=== PATIENT | female | born 1955 | race African-American/Black ===

== ENCOUNTER 2018-11-17 10:16 | Inpatient (IN) ==
[2018-11-17 11:32] LABS: BASO# 0.03 X1000 (0.0-0.2); BASO% 0.3 % (0.0-0.8); EOS# 0.07 X1000 (0.0-0.7); EOS% 0.7 % (0.0-10.0); HEMATOCRIT 34.9 % (37.0-47.0); HEMOGLOBIN 11.5 g/dL (12.0-16.0); IMM GRAN# 0.04 X1000 (0.0-0.04); IMM GRAN% 0.4 % (0.0-0.5); LYMPH% 12.7 % (20.5-51.1); MCH 31.1 PG (27-31); MCV 94.3 FL (81-99); MONO# 0.59 X1000 (0.11-0.59); MONO% 5.8 % (1.7-9.3); NEUT# 8.22 X1000 (1.4-6.5); NEUT% 80.1 % (42.2-75.2); PLT 201 X1000 (130-400); RDW 12.1 % (11.5-14.5); WBC 10.25 X1000 (4.8-10.8)
[2018-11-17 11:35] LABS: BILIRUBIN URINE NEGATIVE (NEGATIVE); BLOOD URINE NEGATIVE (NEGATIVE); CLARITY CLEAR (CLEAR); COLOR YELLOW; KETONE URINE NEGATIVE (NEGATIVE); LEUKOCYTES URINE NEGATIVE (NEGATIVE); NITRITE URINE NEGATIVE (NEGATIVE); PH URINE 6.5; SP GRAVITY URINE 1.015; UROBILINOGEN URINE NORMAL
[2018-11-17 11:39] LABS: URINE BACTERIA 1+ /HFP; URINE CAST GRANULAR PRESENT /LPF; URINE EPITHELIAL CELLS >10 /HPF (<10); URINE SOURCE CLEAN CATCH
--- NOTE | 2018-11-17 12:00 | Extremity Venous Study ---
EXAM: Venous U/S Bilateral Legs HISTORY: leg pain TECHNIQUE: Al scale, color Doppler, and duplex evaluation was performed. COMPARISON: None. FINDINGS: The deep veins of the bilateral lower extremities demonstrate appropriate compressibility and augmentation. No intraluminal thrombus is visualized. There is no evidence for DVT. The superficial veins appear patent. Visualization is somewhat limited by large body habitus . IMPRESSION: No evidence for deep venous thrombosis bilateral lower extremities. Electronically signed by Radha David 11/17/2018 11:58 AM
[2018-11-17 12:09] LABS: ALBUMIN 2.9 g/dL (3.5-5.0); CALCIUM 7.8 mg/dL (8.8-10.2); CREATININE 3.8 mg/dL (0.5-0.9); TOTAL BILIRUBIN 0.3 mg/dL (0.20-1.00); TOTAL PROTEIN 6.4 g/dL (6.3-8.3)
[2018-11-17 12:31] LABS: CK INDEX 0.7 (0.0-2.5); CK-MB 3.79 ng/mL (0.0-5.0)
[2018-11-17 12:40] LABS: INFLUENZA A NEGATIVE (NEGATIVE); INFLUENZA B NEGATIVE (NEGATIVE)
[2018-11-17] MEDS ORDERED: KLOR-CON PO ONE (12:48)
--- NOTE | 2018-11-17 13:04 | Diag Imaging Result Doc PS360 ---
EXAM: CHEST-2 VIEWS HISTORY: postive d-dimer, sob TECHNIQUE: PA and Lateral chest x-ray COMPARISON: None. FINDINGS: There is cardiomegaly. Pulmonary vasculature is not congested. No infiltrate, effusion, or pneumothorax is appreciated. IMPRESSION: Cardiomegaly. Electronically signed by Radha David 11/17/2018 1:01 PM
--- NOTE | 2018-11-17 13:11 | PROVIDER DOCUMENTATION ---
This chart was entered by Kimberly Batista Scribe, acting as scribe for Annie Garcia CRNP. HPI-General Adult - General Chief Complaint: Extremity Pain Stated Complaint: BACK / ABDOMINAL PAIN Time Seen by Provider: 11/17/18 11:02 Source: patient Allergies/Adverse Reactions: Patient Allergies Allergy/AdvReac Type Severity Reaction Status Date / Time egg Allergy ANAPHYLAXIS Verified 10/24/14 07:38 Home Medications: Home Medication List Medication Instructions Recorded Confirmed Last Taken Type Amlodipine [Norvasc] 10 mg PO DAILY 03/03/14 12/30/14 12/20/14 11:00 History Furosemide [Lasix] 40 mg PO DAILY 03/03/14 12/30/14 12/29/14 11:00 History Hydralazine [Apresoline] 50 mg PO TID 03/03/14 12/30/14 12/29/14 11:00 History Insulin Humulin 70/30 [Humulin 40 unit SUBQ HS 03/03/14 12/30/14 10/17/14 History 70/30] Insulin Humulin 70/30 [Humulin 80 unit SUBQ ACB 03/03/14 12/30/14 10/17/14 History 70/30] Levothyroxine [Synthroid] 150 microgm PO DAILY #60 tablet 10/24/14 12/30/1412/01 11:00 Rx Losartan [Cozaar] 100 mg PO DAILY #60 tablet 10/24/14 12/30/14 12/20/14 11:00 Rx Metformin [Glucophage] 1,000 mg PO BID CC #120 tablet 10/24/14 12/30/14 11:00 Rx Potassium Chloride E.r. [Klor-Con] 20 meq PO DAILY 10/24/14 12/30/14 12/29/14 11 :00 History Ranitidine HCl 300 mg PO BID 10/24/14 12/30/14 12/29/14 11:00 History Amlodipine [Norvasc] 10 mg PO DAILY #30 tablet 12/30/14 Unknown Rx Furosemide [Lasix] 40 mg PO DAILY #30 tablet 12/30/14 Unknown Rx Hydralazine [Apresoline] 50 mg PO TID #120 tablet 12/30/14 Unknown Rx Levothyroxine [Synthroid] 150 microgm PO DAILY #30 tablet 12/30/14 Unknown Rx Losartan [Cozaar] 50 mg PO BID #60 tablet 12/30/14 Unknown Rx Metformin [Glucophage] 1,000 mg PO BID CC #60 tablet 12/30/14 Unknown Rx Potassium Chloride [K-Tab ER] 20 meq PO DAILY #30 tablet.er 12/30/14 Unknown Rx - History of Present Illness -Gen Adult Nature of Presenting Problems: 62yof present to ER with c/o multiple complaints. Pt c/o right leg pain onset Tuesday. c/o bilateral chronic knee pain. Pt also c/o left sided abd pain and lower back pain onset Tuesday. Pt denies hx of CHF but states she "takes lasix for her blood pressure". Location of Pain/Injury: reports: abdomen (left side), back (lower), lower extremity (right upper leg and bilateral knees) Pain Radiation: reports: no radiation Quality of Pain: reports: aching Severity: reports: mild Onset/Duration: reports: 2 days ago Timing: reports: still present, getting worse Context/Activities at Onset: reports: light activity Modifying Factors: improves with: nothing Associated Symptoms: reports: denies symptoms Similar Symptoms Previously?: Yes Recently seen or treated by another doctor?: No Review of Systems - Adult - REVIEW OF SYSTEMS - ADULT Constitutional: reports: no symptoms reported Eyes: reports: no symptoms reported Ears, Nose, Mouth & Throat: reports: no symptoms reported Cardiovascular: reports: no symptoms reported Respiratory: reports: see HPI, dyspnea on exertion, shortness of breath. denies : cough, excessive sputum production, wheezing Gastrointestinal: reports: abdominal pain (left side). denies: diarrhea, nausea , vomiting Genitourinary: reports: no symptoms reported Musculoskeletal: reports: back pain (lower), other (right upper leg and bilateral knee pain). denies: neck pain Integumentary: reports: no symptoms reported Neurological: reports: no symptoms reported Psychiatric: reports: no symptoms reported Endocrine: reports: no symptoms reported Hematologic/Lymphatic: reports: no symptoms reported Allergic/Immunologic: reports: no symptoms reported All Other Systems: Reviewed and Negative Past History - Adult - PAST MEDICAL HISTORY-ADULT Review of Records: reports: Nursing Assessment Review, Medications Reviewed, Social history reviewed & non-contributory. Major Childhood Illnesses: reports: denies history Cardiovascular: reports: HTN Respiratory: reports: denies history Gastrointestinal: reports: GERD Obstetrical/Gynecological: reports: denies history Genitourinary: reports: denies history Musculoskeletal: reports: denies history Neurological: reports: CVA, TIA Endocrine/Immune: reports: Diabetes, thyroid disorder Other Conditions: reports: denies history - PRIOR SURGERIES/PROCEDURES Surgical/Procedure History: reports: tonsillectomy, other (thyroid) - IMMUNIZATION STATUS Childhood Immunizations: See Nurse Assessment Flu Vaccine: See Nurse Assessment - FAMILY HISTORY Family History: reviewed, not pertinent - SOCIAL HISTORY Smoking: cigarettes (former) Substance Use: denies Physical Exam-General - PHYSICAL EXAM-ADULT Initial Vital Signs Reviewed: Yes - CONSTITUTIONAL General Appearance: alert, no apparent distress - HEAD, EARS, NOSE, MOUTH & THROAT HENMT: moist mucous membranes, normal ENT inspection - NECK Neck: full range of motion, supple, normal inspection - RESPIRATORY Respiratory: chest non-tender, normal breath sounds, decreased breath sounds - CARDIOVASCULAR Cardiovascular: normal peripheral pulses, regular rate, rhythm - GASTROINTESTINAL (ABDOMEN) Abdominal Exam: normal bowel sounds, soft, tenderness (LLQ). negative: distended, guarding, rigid, rebound - LYMPHATIC Lymphatic: no adenopathy - MUSCULOSKELETAL Back Exam: normal inspection, no vertebral tenderness, CVA tenderness (left), other (paraspinal muscle tenderness to left lumbar) Extremity: normal range of motion, normal capillary refill, pedal edema (2+ BLE) , tenderness (posterior right upper leg, right knee). negative: deformity, erythema - SKIN Integumentary: normal color, normal turgor, warm/dry - NEUROLOGIC Neurologic: grossly normal - PSYCHIATRIC Psych/Mental Status: normal mood/affect, oriented x 3 Progress - PLAN OF CARE/RESULTS Progress/Plan/Lab Results: Vital Signs - 8 hr 11/17/18 10:22 Temperature 97.9 F Pulse Rate 70 Respiratory Rate 18 Blood Pressure 188/74 O2 Sat by Pulse Oximetry 95 Orders Category Date Time Status CBC WITH DIFF [HEME] Stat Lab 11/17/18 11:11 Ordered COMPREHENSIVE METABOLIC PANEL [CHEM] Stat Lab 11/17/18 11:11 Uncollected LIPASE [CHEM] Stat Lab 11/17/18 11:12 Uncollected PRO B-NATRIURETIC PEPTIDE Stat Lab 11/17/18 11:[address] W/POSS RFLX CULT [URINALYSIS] Stat Lab 11/17/18 11:11 Uncollected US [Venous U/S Bilateral Legs] Stat Ther 11/17/18 11:11 Ordered Result Diagrams: 11/17/18 11:21 11/17/18 11:21 - REASSESSMENT Reassessment #1 Time Reassessed: 12:54 (Pt resting. Updated pt of results and possible admission. Pt agrees with this plan. Will page hospitalist.) - EKG 1 Time of EKG reading by physician:: 12:41 EKG Read and Signed by:: Scott Rios EKG Interpretation (*Must complete 3 of following elements*): Abnormal Rate: 59 Rhythm: sinus shelly Comments: moderate voltage criteria for LVH, may be normal variant - XRAY 1 XRAY Study: Chest Impression: See EMR Report (There is cardiomegaly. Pulmonary vasculature is not congested. No infiltrate, effusion, or pneumothorax is appreciated. IMPRESSION: Cardiomegaly. Electronically signed by Radha David 11/17/2018 1: 01 PM) - ULTRASOUND (By Radiology) 1 US Study: Lower Ext (bilateral venous) Impression: Normal (US tech states no DVT present bilaterally. (1150)), See EMR Report ( EXAM: Venous U/S Bilateral Legs HISTORY: leg pain TECHNIQUE: Al scale, color Doppler, and duplex evaluation was performed. COMPARISON: None. FINDINGS: The deep veins of the bilateral lower extremities demonstrate appropriate compressibility and augmentation. No intraluminal thrombus is visualized. There is no evidence for DVT. The superficial veins appear patent. Visualization is somewhat limited by large body habitus . IMPRESSION: No evidence for deep venous thrombosis bilateral lower extremities. Electronically signed by Radha David 11/17/2018 11:58 AM 11/17/18 1158 10/07 1200 Dictated by: Radha David MD Dictated: 11/17/18 1157 Transcribed by: - 11/17/18 1157 CC:) - CONSULTS/PCP/HOSPITALIST Notification #1 *Consult/PCP/Hospitalist*: Dr Zapata, hospitalist Time Discussed: 12:55 (possible admission. Requests order for echo and VQ scan) Consult Disposition: Admit Departure - Departure Date of Disposition Decision: 11/17/18 Time of Disposition Decision: 12:55 DIAGNOSIS: Acute renal insufficiency, Hypokalemia, Positive D dimer Disposition: ADMITTED INPATIENT 09 Certified Medical Emergency: Emergent Condition: Fair Referrals and Follow-Ups: Silvina Lawton CRNP [Primary Care Provider] - - Critical Care Note This patient required my direct & personal management of CC.: No Attestation - Physician/ LOYDA Attestation Patient care was provided by Advanced Practice Provider:: Yes Advanced Practice Provider:: Annie Garcia Advanced Practice Provider documentation review:: The Mid-level provider documentation, treatment plan and medical decision making was reviewed by the physician who agrees with all treatment and medical decision making by the MLP. The physician spent face to face time with patient:: No Advanced Practice Provider documentation review:: Supervising physician onsite and consulted in the evaluation and care of this patient. The physician did not have a face to face encounter with the patient. This chart was documented by the indicated scribe, (Kimberly Batista Scribe) and accurately reflects the services I performed and decisions made by me, Annie Garcia CRNP, as attested by the provider's signature.
[2018-11-17 15:54] LABS: CK INDEX 0.8 (0.0-2.5); CK-MB 4.93 ng/mL (0.0-5.0)
[2018-11-17] MEDS: HUMALOG (PARKWAY) SUBQ SCH ×2 (16:43→22:00)
[2018-11-17] MEDS: LASIX IV SCH (16:47)
--- NOTE | 2018-11-17 17:00 | Diag Imaging Result Doc PS360 ---
EXAM: LUNG SCAN / VQ HISTORY: elevated d-dimer, sob TECHNIQUE: 41.1 mCi technetium 99m DTPA inhaled. 6 mCi technetium 99m MAA IV. COMPARISON: None. FINDINGS: There are no perfusion abnormalities to suggest acute pulmonary embolism. No ventilation/perfusion mismatches. IMPRESSION: Normal study. No evidence for acute pulmonary embolism. Electronically signed by Radha David 11/17/2018 4:57 PM
[2018-11-17] MEDS ORDERED: TYLENOL PO PRN (18:04)
[2018-11-17] MEDS ORDERED: ZOFRAN IV PRN (18:04)
[2018-11-17 18:34] LABS: CK INDEX 0.8 (0.0-2.5); CK-MB 4.86 ng/mL (0.0-5.0)
--- NOTE | 2018-11-17 20:54 | ECHO REPORT ---
ORDER DATE: 11/17/2018 INDICATION: Shortness of breath, edema, elevated D-dimer, kidney failure. FINDINGS: 1. The right atrium appears normal in size at 3.3 cm. 2. Mild tricuspid regurgitation. RV systolic pressure of 45. 3. Normal RV size and systolic function. 4. Trace pulmonic insufficiency. 5. Mild left atrial enlargement with a dimension of 4.6 cm. 6. No mitral valve prolapse. Trace mitral regurgitation. 7. Normal LV size with an end-diastolic dimension of 4 cm. Mild left ventricular hypertrophy with a posterior and interventricular septal wall thickness 1.3 cm each. Normal LV systolic function. Calculated ejection fraction of 67% with normal wall motion. 8. Aortic valve opens well. No evidence of stenosis or insufficiency. 9. Aorta appears normal in visualized segments. 10. No pericardial effusion seen. cc: Ravindra Cormier MD
[2018-11-17 21:27] LABS: UR CREAT RANDOM 123.4 mg/dL (11-20); UR PROT RANDOM > 600.0 mg/dL; UR SODIUM 31 mmoll; UR UREA NITROGEN RANDOM 293 mg/dL
[2018-11-17 21:42] LABS: CK INDEX 0.7 (0.0-2.5); CK-MB 4.98 ng/mL (0.0-5.0)
--- NOTE | 2018-11-17 22:20 | HISTORY AND PHYSICAL ---
HISTORY OF PRESENT ILLNESS: The patient came in for evaluation because of shortness of breath and several other complaints, she has also had bilateral lower extremity swelling, which is worse on the right side than the left. She reports a history of chronic renal failure. She had an elevated D-dimer. Her creatinine is up to 3.8, but unclear. Chest x-ray showed cardiomegaly but no pulmonary edema. Venous ultrasound was negative for PE and her V/Q was negative. PROBLEM LIST: Volume overload, presumably. We will continue diuretics and monitor her kidney function. We will also rule out congestive heart failure, hyperthyroid, other things if possible. I have discussed the case with talent acquisition relationship manager, may try to get Dr. Fitzgerald to evaluate the patient as well because the difficulty here is that she appears volume overloaded but she may also be in chronic renal failure. Disposition pending clinical status. She also reports some chest discomfort, just kind of multiple complaints. Her most recent creatinine is 2.3 from February. I do not have any other data, at this point, but she reports she has had an outpatient ultrasound and all that has been negative. Her latest creatinine is 1.3. She had a myocardial perfusion scan in 2014, but that was pretty normal. Ejection fraction at that time was normal. cc: Seven Zapata MD
[2018-11-18] MEDS: LASIX IV SCH ×3 (06:00→23:54)
[2018-11-18] MEDS: HUMALOG (PARKWAY) SUBQ SCH ×4 (06:22→20:43)
[2018-11-18 07:12] LABS: BASO# 0.04 X1000 (0.0-0.2); BASO% 0.6 % (0.0-0.8); EOS# 0.15 X1000 (0.0-0.7); EOS% 2.2 % (0.0-10.0); HEMATOCRIT 33.2 % (37.0-47.0); HEMOGLOBIN 10.9 g/dL (12.0-16.0); IMM GRAN# 0.01 X1000 (0.0-0.04); IMM GRAN% 0.1 % (0.0-0.5); LYMPH# 1.94 X1000 (1.2-3.4); LYMPH% 28.4 % (20.5-51.1); MCH 31.2 PG (27-31); MCHC 32.8 g/dL (33-37); MCV 95.1 FL (81-99); MONO# 0.69 X1000 (0.11-0.59); MONO% 10.1 % (1.7-9.3); MPV 11.9 FL (7.4-10.4); NEUT# 4.01 X1000 (1.4-6.5); NEUT% 58.6 % (42.2-75.2); PLT 191 X1000 (130-400); RBC 3.49 XMIL (4.2-5.4); RDW 12.1 % (11.5-14.5); WBC 6.84 X1000 (4.8-10.8)
[2018-11-18 07:37] LABS: HEMOGLOBIN A1C 6.7 % (4.8-6.0)
[2018-11-18 07:38] LABS: CREATININE 3.7 mg/dL (0.5-0.9); POTASSIUM 2.7 mmol/L (3.5-5.1)
--- NOTE | 2018-11-18 09:30 | Diag Imaging Result Doc PS360 ---
EXAM: US RENAL 2 (RETROPER) COMPLETE INDICATION: samir TECHNIQUE: COMPARISON: None. FINDINGS: There is a 2.7 cm simple cyst associated with the right kidney. The renal echotexture may be marginally increased, which is a nonspecific indicator of medical renal disease. No solid renal mass or hydronephrosis is identified. The right kidney measures 12.4 cm and the left kidney measures 12.1 cm in the greatest longitudinal axes. Right renal cortex measures 0.9 cm and the left renal cortex measures 1.3 cm in thickness. The urinary bladder is only slightly distended and is grossly unremarkable, otherwise. IMPRESSION: Suggestion of very minimal increased renal cortical echotexture, which is a nonspecific indicator of medical renal disease. Electronically signed by Tacho Landaverde 11/18/2018 9:28 AM
[2018-11-18] MEDS ORDERED: NORVASC PO ONE (12:24)
[2018-11-18] MEDS ORDERED: BYSTOLIC PO ONE (12:24)
--- NOTE | 2018-11-18 15:46 | NEPHROLOGY CONSULTATION ---
DATE: 11/17/2018 REASON FOR CONSULTATION: Edema and chronic kidney disease. HISTORY OF PRESENT ILLNESS: Ms. Quevedo is a 62-year-old woman with known chronic kidney disease secondary to diabetes. She has known retinopathy. She came to the hospital because of worsening shortness of breath that made her feel like she was dying. She also was experiencing worsening lower extremity edema. Her dyspnea was with exertion, but she had no PND or orthopnea. No chest pain or palpitations. Her appetite is intact. No nausea, vomiting or diarrhea. She has been in the hospital for less than 24 hours and she is net negative 1 liter. She has seen Dr. Armendariz in the past, as well as Dr. Umana in the past. Her last encounter with Nephrology was in April, at which time her creatinine was in the mid 2s, and she was told that she had diabetic nephropathy. She was receiving losartan and also amlodipine. PAST MEDICAL HISTORY: As above. She also has GERD, hypertension, hyperlipidemia. HOME MEDICATIONS: Amlodipine, furosemide, hydralazine, insulin, levothyroxine, losartan, metformin, potassium, ranitidine. ALLERGIES: Egg. SOCIAL: . No tobacco or alcohol. FAMILY HISTORY: Positive for chronic kidney disease, but no ESKD. REVIEW OF SYSTEMS: Negative otherwise. PHYSICAL EXAMINATION: Vital Signs: Blood pressure 202/75, heart rate 55, respirations 16, afebrile. General: She is an obese, woman in no acute distress. Skin: Warm and dry with some scaling, but no other lesions. HEENT: Pupils are equal. Conjunctivae are pink. Oropharynx is clear. Normal tongue. Normal teeth. Neck: Supple. Trachea is midline. Neck veins are not appreciated. No hepatojugular reflux. Heart: PMI is nondisplaced. Regular rate and rhythm without gallops or murmurs. Lungs: Have equal breath sounds. No crackles or wheezes. Abdomen: Obese and soft. Bowel sounds present. No organomegaly or masses or bruits. Extremities: Have 2+ edema, right greater than left. IMPRESSION: 1. Chronic kidney disease stage IV secondary to diabetic nephropathy. Her 24-hour urine is in process to quantify her proteinuria. We will also quantify her renal function. She has undergone renal ultrasound today which demonstrated bilateral kidneys at 12+ cm. 2. Volume overload. Her blood pressure is elevated, which may lead to diastolic dysfunction and worsened fluid retention. Her amlodipine may contribute as well. We will titrate her beta- melva, and I increased her furosemide to 80 mg twice daily. We will continue to observe. If her blood pressure improves, then we will attempt to wean off of amlodipine and replace it with a different medication. I will go ahead and restart her losartan 100 mg a day. cc: Zhang Fitzgerald MD
[2018-11-18] MEDS: HUMULIN 70/30 (PARKWAY) SUBQ SCH (17:57)
[2018-11-18] MEDS: APRESOLINE PO SCH (20:43)
[2018-11-18] MEDS: COREG PO SCH (20:43)
[2018-11-18] MEDS: XALATAN 0.005% OPH SOLN BOTH EYES SCH (20:43)
[2018-11-18] MEDS ORDERED: APRESOLINE PO SCH ×2 (21:00)
--- NOTE | 2018-11-18 21:30 | PROGRESS NOTE ---
DATE: 11/18/2018 SUBJECTIVE: The patient has no major complaints. She actually looks a lot better. Subjectively, looks a little better. Her lungs are clear though. OBJECTIVE: Vital Signs: Blood pressure is 194/72, heart rate of 57, respiratory rate 18, temperature 98.1 degrees. Cardiovascular: Regular rate and rhythm. Pulmonary: Bilateral breath sounds. Clear to auscultation. GI: Soft, nontender, nondistended. Bowel sounds were positive. She still has about 2+ pitting edema. LABORATORY STUDIES: White count is 6. Hemoglobin and hematocrit of 10 and 33. Platelets 191,000. Potassium is 2.7, creatinine is 3.7. Sugar of 226. Her A1c though is only 6.7. PROBLEM LIST: 1. I would say malignant hypertension. We are working on control. Dr. Fitzgerald has switched her Coreg, increased her Lasix. I am going to stop her amlodipine and bump up her hydralazine, and we will see how she does. He has also replaced her losartan, and will see how things look. 2. Disposition. Pending her clinical status. In any case, the patient is stable. We will continue to follow closely. Disposition pending clinical status. We will continue to monitor her kidney function very closely. A 24-hour urine is in process. 3. Diabetes. Appears to be not completely under control, but I do not think she has been on her regular medications. I am not clear she is supposed to be on metformin, but she is not on metformin, or she cannot be with her renal dysfunction. We will follow. DISPOSITION: Pending her clinical status. cc: Seven Zapata MD
[2018-11-19] MEDS: HUMALOG (PARKWAY) SUBQ SCH ×4 (06:02→21:32)
[2018-11-19] MEDS: SYNTHROID PO SCH (06:02)
[2018-11-19 06:15] LABS: ALBUMIN 2.7 g/dL (3.5-5.0); CALCIUM 7.6 mg/dL (8.8-10.2); CREATININE 3.7 mg/dL (0.5-0.9); PHOSPHORUS 3.9 mg/dL (2.7-4.5); POTASSIUM 2.7 mmol/L (3.5-5.1)
[2018-11-19] MEDS: COZAAR PO SCH (08:58)
[2018-11-19] MEDS: COREG PO SCH ×2 (08:59→20:58)
[2018-11-19] MEDS: APRESOLINE PO SCH ×3 (08:59→20:57)
[2018-11-19] MEDS ORDERED: BYSTOLIC PO SCH (09:00)
[2018-11-19] MEDS: HUMULIN 70/30 (PARKWAY) SUBQ SCH ×2 (09:00→18:17)
[2018-11-19] MEDS ORDERED: NORVASC PO SCH (09:00)
[2018-11-19] MEDS ORDERED: KLOR-CON PO ONE (12:03)
[2018-11-19] MEDS: LASIX IV SCH (13:34)
--- NOTE | 2018-11-19 18:41 | PROGRESS NOTE ---
DATE: 11/19/2018 SUBJECTIVE: Patient has no focal complaints. OBJECTIVE: Blood pressure 177/65, heart rate of 59, respiratory rate 18, temperature 97.8 degrees, 97% on room air. The patient was feeling well but then she did not feel well later this afternoon and was very concerned about Apresoline even know that is also hydralazine which is a medicine she has taken before, although not at this dose. We had a long conversation about that. PROBLEM LIST: 1. Malignant hypertension is finally improved but she is symptomatic. We discussed that it was normal for her to be symptomatic. Her blood pressures probably been in the 190s or 200s and now in the 140s. She would be symptomatic its natural course and it may take a week or 2 to improve so that is not unusual. That being said she understood but she was still reluctant to continue hydralazine at this dose. As we want to encourage compliance I agree we would tone it down to b.i.d. and see how she does. 2. Volume overload. That seems to be better. I think I am going to try to decrease her Lasix. She has not really had a lot of output but at least switch her to p.o. Lasix we just started. I am going to leave her on her Lasix right now and. 3. Disposition I think she probably go home tomorrow if her blood pressure is stable and then her 24 hour urine collections will be up. She will need close followup with her PCP which is Silvina Lawton and she will follow up with Dr. Fitzgerald. I hope she will be compliant. We took her off her amlodipine due to swelling, Coreg was actually started by Dr. Fitzgerald as well as losartan, the hydralazine I bumped up will decrease but I think if she is stable tomorrow she should be able to go home. cc: Seven Zpaata MD
[2018-11-19] MEDS: XALATAN 0.005% OPH SOLN BOTH EYES SCH (20:58)
[2018-11-19 23:06] LABS: UR CREATININE 92.7 mg/dL (11-20); UR CREATININE TOTAL 1297.8 mg/24 (600-1600)
[2018-11-19 23:08] LABS: CREATININE 3.7 mg/dL (0.7-1.2)
[2018-11-20] MEDS: LASIX IV SCH (00:13)
[2018-11-20] MEDS: HUMALOG (PARKWAY) SUBQ SCH ×2 (06:09→11:46)
[2018-11-20] MEDS: SYNTHROID PO SCH (06:45)
[2018-11-20 07:29] LABS: ALBUMIN 2.8 g/dL (3.5-5.0); CALCIUM 7.7 mg/dL (8.8-10.2); CREATININE 4.1 mg/dL (0.5-0.9); PHOSPHORUS 4.5 mg/dL (2.7-4.5); POTASSIUM 3.1 mmol/L (3.5-5.1)
[2018-11-20 07:39] VITALS: BP 200/74
[2018-11-20] MEDS ORDERED: KLOR-CON PO ONE (07:46)
[2018-11-20] MEDS: APRESOLINE PO SCH (08:27)
[2018-11-20] MEDS: COZAAR PO SCH (08:28)
[2018-11-20] MEDS: COREG PO SCH (08:28)
[2018-11-20] MEDS ORDERED: BYSTOLIC PO SCH (09:00)
[2018-11-20] MEDS ORDERED: LASIX PO SCH (09:00)
--- NOTE | 2018-11-20 09:08 | NEPHROLOGY PROGRESS NOTE ---
DATE: 11/20/2018 SUBJECTIVE: She is sitting up. Feels well. No shortness of breath, nausea, or vomiting. She is eating without difficulty. OBJECTIVE: Vital Signs: Blood pressure 163/68, heart rate 57, respirations 20, afebrile. General: No acute distress. Skin: Warm and dry. Neck: Neck veins are not distended. Heart: Regular. Lungs: Equal. Abdomen: Soft. Extremities: Have 1+ edema. No clubbing or cyanosis. IMPRESSION: Chronic kidney disease stage 4. Measured creatinine clearance 24 mL per minute. Her creatinine hetal today in the context of aggressive diuretic therapy so I will stop her intravenous Lasix and put her on 40 mg once daily. Okay for her to be discharged on this dose and we will see her in the office. cc: Zhang Fitzgerald MD
--- NOTE | 2018-11-20 10:02 | HISTORY AND PHYSICAL ---
PRIMARY CARE PROVIDER: EUGENIA Mauro. CHIEF COMPLAINT: Shortness of breath, bilateral lower extremity edema. HISTORY OF PRESENTING ILLNESS: This is a 62-year-old female who presents to [facility] ER with complaints of shortness of breath with exertion and bilateral lower extremity edema states that she takes her Lasix for her blood pressure and that she does not have a previous history of congestive heart failure. She is noted to have 2+ pitting edema to her bilateral lower extremities. Her workup showed a D-dimer of 1.83, potassium of 3, BUN of 27 with a creatinine of 3.8. States that she has had some chronic kidney disease in the past but does not know her stage. Her proBNP today was 1625 with no previous to compare to. We did do a bilateral lower extremity venous Doppler in the emergency room that showed no evidence of a DVT to bilateral lower extremities. Her chest x-ray showed cardiomegaly but the pulmonary vascular was not congested. No infiltrate, effusion or pneumothorax was appreciated so she is being admitted for further evaluation and treatment. PAST MEDICAL HISTORY: Hypertension, GERD, CVA, diabetes and hypothyroidism. PAST SURGICAL HISTORY: Tonsillectomy and thyroidectomy. FAMILY HISTORY: Reviewed and noncontributory. SOCIAL HISTORY: She currently lives with family, is a former smoker. Denies any alcohol or illicit drug use. ALLERGIES: Eggs. HOME MEDICATIONS: Will need to obtain a current list and reconcile and then review and restart as appropriate. I will place an order for nursing to update and confirm home medications. LABORATORY DATA: Showed a white blood cell count of 10.25, hemoglobin 11.5, hematocrit 34.9, platelets 201,000. D-dimer of 1.83, sodium 138, potassium was 3, chloride 99, CO2 27, BUN of 27, creatinine 3.8, glucose 231, creatine kinase of 552, CK-MB of 3.79, troponin 0.060. ProBNP of 1625, lipase was 66. Urinalysis was negative except for 1+ bacteria. Influenza A and B were both negative. Bilateral lower extremity venous Doppler showed no evidence of a DVT to bilateral lower extremities. Chest x-ray showed cardiomegaly. The pulmonary vasculature was not congested. No infiltrate, effusion or pneumothorax was appreciated. REVIEW OF SYSTEMS: She denied any fever, chills, blurred vision, dizziness, she denied any chest pain, coughing. She has had shortness of breath worse with exertion, denied any abdominal pain, constipation, diarrhea, burning or hurting with urination. She was positive for swelling to her bilateral lower extremities. PHYSICAL EXAMINATION: On arrival she had a temperature of 97.9 degrees, a pulse of 70, respirations 18, blood pressure 188/74, saturating 95% on room air. GENERAL: This is a 62-year-old female who is lying in the bed and answers questions appropriately. HEENT: Normocephalic, atraumatic. Normal ENT inspection. Oropharynx and nares were clear. NECK: Normal inspection, normal range of motion. LUNGS: With decreased breath sounds to her bases bilaterally but equal lung expansion and chest wall movement noted. HEART: With regular rate and rhythm. No murmurs, rubs, or gallops. She was noted to have 2+ pitting edema to bilateral lower extremities. ABDOMEN: Soft, nontender, nondistended. Bowel sounds are present x4 quadrants. MUSCULOSKELETAL: She has 5/5 strength x4 extremities. NEUROLOGICAL: The cranial nerves 2-12 appear grossly intact. ASSESSMENT: 1. A new onset congestive heart failure. 2. Hypokalemia. 3. Acute on chronic kidney disease currently in stage IV and an elevated D-dimer and hypertension. PLAN: She is being admitted to the medical unit, placed on telemetry, diabetic diet. We are obtaining an echocardiogram, we will complete serial cardiac enzymes. We will check a V/Q lung scan to rule out a PE, place on Lasix 40 mg IV q.12. They gave her a 40 mEq potassium p.o. x1 in the emergency room and we will recheck a CBC, BMP in the a.m. and we need again to update and confirm home medications and will restart those as appropriate. We are going to place her on pattern blood sugars with sliding scale insulin and further orders after seen by attending. Dictated by EUGENIA Ulloa for Seven Zapata MD cc: EUGENIA Taylor CRNP Alexis R. Penot, MD
[2018-11-20] MEDS: HUMULIN 70/30 (PARKWAY) SUBQ SCH (11:06)
--- NOTE | 2018-11-20 11:14 | EKG Report ---
Test Performed on : 11/17/2018 12:41:56 PM Test Reason : CP Blood Pressure : / mmHG Vent. Rate : 059 BPM Atrial Rate : 059 BPM P-R Int : 174 ms QRS Dur : 090 ms QT Int : 452 ms P-R-T Axes : 046 -13 143 degrees QTc Int : 447 ms Sinus bradycardia. Moderate voltage criteria for LVH, may be normal variant T wave abnormality, consider lateral ischemia Abnormal ECG When compared with ECG of 30-DEC-2014 11:13, T wave inversion more evident in Anterolateral leads Unconfirmed Result
--- NOTE | 2018-11-21 06:02 | DISCHARGE SUMMARY ---
ADMISSION DATE: 11/17/2018 DISCHARGE DATE: 11/20/2018 DIAGNOSES: 1. Chronic kidney disease stage IV secondary to diabetic neuropathy. 2. Volume overload, resolved. 3. Hypertension. 4. Diabetes mellitus with a hemoglobin A1c of 6.7. DIAGNOSTICS: 1. 11/17/2018, chest x-ray revealed cardiomegaly. No infiltrate, effusion, or pneumothorax is appreciated. 2. 11/17/2018, echocardiogram revealed an ejection fraction of 67% with normal wall motion, with normal systolic function. Mild left ventricular hypertrophy. 3. V/Q lung scan revealed no evidence for acute pulmonary embolism. 4. Renal ultrasound revealed suggestion of very minimal increased renal cortical echotexture which is a nonspecific indicator of medical renal disease. 5. Urine culture revealed no growth. HOSPITAL COURSE: Ms. Quevedo presented to the emergency room because of increasing shortness of breath as well as increasing lower extremity edema. She was found to be in volume overload with malignant hypertension. Electrolytes were followed and repleted as is appropriate. Dr. Fitzgerald, nephrology was consulted. He did readjust her medications with blood pressures decreasing to the 150s to 170s over 70s. She did have a creatinine of 3.8 on admission. This did increase. It was felt this was secondary to aggressive diuretic therapy. Lasix was changed to oral per Dr. Fitzgerald, and thankfully she is ready for discharge. DISCHARGE PHYSICAL EXAMINATION: Vital Signs: Blood pressure was 163/68 with a heart rate of 57, respirations are 20, temperature 97.7 degrees. Cardiovascular: Regular rate and rhythm. S1 and S2 appreciated. Extremities: She did have some bilateral lower extremity edema about 1+ with peripheral pulses palpable x4 extremities. Her calves are nontender. Pulmonary: Breath sounds are clear with no increased work of breathing noted. Chest rises and falls symmetrically with respiration. Gastrointestinal: Abdomen is soft, nontender, nondistended, with bowel sounds in all 4 quadrants. Neurologic: She is alert oriented x3. DISCHARGE MEDICATIONS: 1. Cozaar 100 mg p.o. daily. 2. Levothyroxine 150 mcg p.o. daily. 3. Insulin 70/30, 50 units subcu b.i.d. 4. Hydralazine 100 mg p.o. b.i.d. 5. Lasix 40 mg p.o. daily. 6. Coreg 25 mg p.o. b.i.d. 7. Latanoprost 2.5 mL drops in both eyes. FOLLOWUP: 1. She is to follow up with Dr. Fitzgerald in 2 weeks. At that time renal, CBC, urine microalbumin and creatinine ratio will need to be rechecked. 2. Silvina Lawton. Appointment is scheduled for 11/27/2018, at 9 a.m. 3. She has been instructed to call to be seen sooner or return to the ER for chest pain, palpitations, syncope, dizziness, increasing shortness of breath, or for any questions or concerns that she may have. She is being discharged home in stable condition with family members. This is a greater than 30 minute discharge. Dictated by EUGENIA Reid for Felipe Marte MD This chart was documented by, EUGENIA Reid and accurately reflects the services performed, treatment plan and medical decisions as attested by the providers signature Felipe Marte MD. cc: EUGENIA Reid MD Anna M. Dumas, CRNP
--- NOTE | 2018-11-21 09:46 | DISCHARGE SUMMARY ---
ADMISSION DATE: 11/17/2018 DISCHARGE DATE: 11/20/2018 DISCHARGE ADDENDUM: Patient seen and examined by myself. The patient presented to the hospital with malignant hypertension. Blood pressures were brought under much better control, but patient did not tolerate this. Therefore, we have allowed her pressures to be at 150s to 160s although I did discuss with patient that this is not a blood pressure range that she wants to stay at. Overall, she has improved. We will discharge her home. She will follow up outpatient with her primary care as well as with Dr. Fitzgerald. cc: Felipe Marte MD
== END 2018-11-20 12:35 | disposition home or self-care (01) | DRG 641 ==
LOC: P.ED 10:16 → SUATTDRO 13:42 → P.MEDSURG 13:42
PROVIDERS: ATTEND Family Medicine
CPT/HCPCS: 71020; 71046; 76770; 78582; 80048; 80053; 80069; 81001; 81050; 82550; 82553; 82570; 82575; 82948; 83036; 83690; 83880; 84156; 84300; 84484; 84540; 85025; 85379; 87088; 87205; 87275; 87276; 87804; 93005; 93306; 93970; 97163; 99285; A9270; A9539; A9540; J1815; J1940; XXXXX